=== PATIENT | male | born 1955 | race African-American/Black ===

== ENCOUNTER 2019-01-05 14:51 | Emergency (ER) | payer OTHER ==
[~2019-01-05] VITALS: Ht 177.8 cm; Wt 106.6 kg
[2019-01-05 15:01] VITALS: BP 144/85
--- NOTE | 2019-01-05 15:10 | NUR ---
ED Nurse Note: Patient walked into ED c/o bleeding from the nose Patient reports he accidentally scratched his nose on the outside, right side of his nose and it's bleeding minimally. patient is alert awake x4 ambulatory breathing even and unlabored nose is cleaned with normal saline and instrcuted patient to apply pressure directly on the abrasion.
--- NOTE | 2019-01-05 15:48 | Emergency Room Report ---
History of Present Illness General Chief Complaint: Nosebleed Source: Patient Present Illness HPI 63-year-old male presents to the emergency department complaining of persistent oozing of blood from the side of his nose since this morning. Patient reports that he actually scratched the side of his nose and he is on blood thinner and having a difficult time controlling bleeding. takes ASA daily. denies history of blood dyscrasias. denies pain. He reports he has had no relief with direct pressure. Allergies: Coded Allergies: IBUPROFEN (Verified Allergy, Unknown, 01/05/19) Patient History Past Medical History: see triage record Past Surgical History: none Pertinent Family History: none Reviewed Nursing Documentation: PMH: Agreed; PSxH: Agreed Nursing Documentation-PMH Past Medical History: No History, Except For Hx Diabetes: Yes History Of Psychiatric Problem: Yes Review of Systems All Other Systems: negative except mentioned in HPI Physical Exam Vital Signs Date Time Temp Pulse Resp B/P (MAP) Pulse Ox O2 Delivery O2 Flow Rate FiO2 01/05/19 15:01 98.1 97 17 94 Room Air 01/05/19 15:01 144/85 Sp02 EP Interpretation: reviewed, normal General Appearance: no apparent distress, alert, GCS 15, non-toxic Head: normocephalic, atraumatic Eyes: bilateral eye normal inspection, bilateral eye PERRL ENT: hearing grossly normal, normal voice, other - external nasal abrasion approx 0.2 cm in size Neck: full range of motion Respiratory: lungs clear, normal breath sounds, speaking full sentences Cardiovascular #1: regular rate, rhythm Musculoskeletal: gait/station normal, normal range of motion, non-tender Neurologic: alert, oriented x3, responsive, motor strength/tone normal, sensory intact, speech normal, grossly normal Psychiatric: judgement/insight normal Skin: normal color, no rash, warm/dry, well hydrated, abrasions - external nasal abrasion approx 0.2 cm in size Procedures Laceration/Wound Repair Laceration/Wound Repair : Consent: Verbal Wound Location: face - left side of nose Wound's Depth, Shape: superficial Wound Length (cm): 1 Wound Explored: clean Wound Repaired With: Dermabond Layer Closure?: No Sterile Dressing Applied?: No Splint Applied?: No Sling Applied?: No Patient Tolerated: Well Complications: None Medical Decision Making PA Attestation Dr. oliver is my supervising Physician whom patient management has been discussed with. Diagnostic Impression: Primary Impression: Nasal abrasion Qualified Codes: S00.31XA - Abrasion of nose, initial encounter ER Course 63-year-old male presents to the emergency department complaining of persistent oozing of blood from the side of his nose since this morning. Patient reports that he actually scratched the side of his nose and he is on blood thinner and having a difficult time controlling bleeding. takes ASA daily. denies history of blood dyscrasias. denies pain. He reports he has had no relief with direct pressure. Ddx considered but are not limited to laceration, tendon injury, cellulitis, amputation Vital signs: are WNL, pt. is afebrile H&PE are most consistent with: external nasal abrasion approx 0.2 cm in size. ORDERS: none required at this time, the diagnosis is clinical ED INTERVENTIONS: -Direct pressure applied with nose clamp. ---bleeding resolved. - Dermabond was applied over the abrasion to ensure hemostasis. DISCHARGE: At this time pt. is stable for d/c to home. Will provide printed patient care instructions, and any necessary prescriptions. Care plan and follow up instructions have been discussed with the patient prior to discharge. Last Vital Signs Date Time Temp Pulse Resp B/P (MAP) Pulse Ox O2 Delivery O2 Flow Rate FiO2 01/05/19 15:01 98.1 79 17 144/85 94 Room Air Disposition: HOME, SELF-CARE Condition: Stable Patient Instructions: Abrasion, [id number] Additional Instructions: Take previously prescribed medications as directed. Follow up with a Primary Care Provider in 3-5 days, even if your symptoms have resolved. --Please review list of primary care clinics, if you do not already have a primary care provider Return sooner to ED if new symptoms occur, or current symptoms become worse. - Please note that this Emergency Department Report was dictated using [employer] agent technology software, occasionally this can lead to erroneous entry secondary to interpretation by the dictation equipment. Laura Riddle January 05, 2019 15:48
--- NOTE | 2019-01-05 15:58 | NUR ---
ER DISCHARGE NOTE: Patient is cleared to be discharged per TEZ MILLARD, pt is aox4, on room air, with stable vital signs. pt was given dc instructions, pt was able to verbalize understanding, pt id band removed without complications. pt is able to ambulate with steady gait. pt took all belongings.
== END 2019-01-05 15:57 | disposition home or self-care (01) ==
LOC: EMR 15:30
DX: S00.31XA Abrasion of nose, initial encounter (principal); Z79.82 Long term (current) use of aspirin; E11.9 Type 2 diabetes mellitus without complications
CPT/HCPCS: 12011; 99283; Z7502